=== PATIENT | female | born 1955 | race Two or more races ===

== ENCOUNTER 2020-02-01 08:41 | Day surgery (SDC) | payer BC ==
[2020-01-28 10:01] VITALS: BMI 28.7
[2020-02-01] MEDS ORDERED: PROPOFOL 20 ML ONE ×2 (09:57)
[2020-02-01 11:33] VITALS: TEMP 98.2
[2020-02-01 12:42] VITALS: BP 120/56; PULSE 76
== END 2020-02-01 12:45 | disposition home or self-care (01) ==
LOC: FASU-ENDO 08:41
PROVIDERS: ATTEND Internal Medicine Gastroenterology
PROC: 0DJD8ZZ Inspection of Lower Intestinal Tract, Via Natural or Artificial Opening Endoscopic (ICD-10-PCS; principal; 2020-02-01 11:11)
DX: Z12.11 Encounter for screening for malignant neoplasm of colon (principal); Z80.0 Family history of malignant neoplasm of digestive organs